=== PATIENT | male | born 1965 | race Caucasian/White ===

== ENCOUNTER 2017-01-02 00:59 | Emergency (ER) | payer OTHER ==
[~2017-01-02] VITALS: Ht 177.8 cm; Wt 87.5 kg
[2017-01-02 01:02] VITALS: Ht 177.8 cm; Wt 87.5 kg
--- NOTE | 2017-01-02 01:46 | ERD ---
ER Documentation Chief Complaint Date/Time DATE: 01/02/17 TIME: 01:44 Chief Complaint sp fall while working in his job from boxes, right upper back pain, right elbow pain HPI 51-year-old male presents to emergency department for complaints of right elbow pain headache dizziness right upper back pain after falling while working today. Patient fell landed backwards and landed on the right elbow and the head. Patient did not lose consciousness after the injury. Patient does not have any numbness or tingling. Patient does not have any vomiting. Patient denies any blurry vision. Patient denies any joint deformity. Patient did not take any medications for pain. Patient discussed the pain as throbbing pain, 6/ 10 scale, is worse upon movement of the joints. Patient denies any open wounds. ROS All systems reviewed and are negative except as per history of present illness. Medications Home Meds Reported Medications [none] Unknown Strength No Conflict Check 01/02/17 Allergies Allergies: Coded Allergies: No Known Allergy (Unverified , 01/02/17) PMhx/Soc Medical and Surgical Hx: pt denies Medical Hx, pt denies Surgical Hx Hx Alcohol Use: No Hx Substance Use: No Hx Tobacco Use: No Smoking Status: Never smoker FmHx Family History: No coronary disease, No diabetes, No other Physical Exam Vitals Vital Signs Date Time Temp Pulse Resp B/P Pulse Ox O2 Delivery O2 Flow Rate FiO2 01/02/17 01:02 97.7 63 20 141/89 100 Physical Exam GENERAL: The patient is well developed and appropriate for usual state of health, in no apparent distress. CHEST: Clear to auscultation bilaterally. There are no rales, wheezes or rhonchi. HEART: Regular rate and rhythm. No murmurs, clicks, rubs or gallops. No S3 or S4. ABDOMEN: Soft, nontender and nondistended. Good bowel sounds. No rebound or guarding. No gross peritonitis. No gross organomegaly or masses. No Ramsay sign or McBurney point tenderness. BACK: No midline or flank tenderness. Mild tenderness on palpation on the right paraspinal thoracic spine. EXTREMITIES: Bilateral full range of motion of the right elbow without any estrogen, mild tenderness on palpation of the right elbow area, no swelling noted, no deformity. Equal pulses bilaterally. There is no peripheral clubbing, cyanosis or edema. No focal swelling or erythema. Full range of motion. Grossly neurovascularly intact. NEURO: Alert and oriented. Cranial nerves 2-12 intact. Motor strength in all 4 extremities with 5/5 strength. Sensation grossly intact. Normal speech and gait. Negative Romberg sign. Negative pronator drift. SKIN: There is no apparent rash or petechia. The skin is warm and dry. HEMATOLOGIC AND LYMPHATIC: There is no evidence of excessive bruising or lymphedema. No gross cervical, axillary, or inguinal lymphadenopathy. Results 24 hrs PROCEDURE: Right elbow. CLINICAL INDICATION: Pain. TECHNIQUE: 3 views including AP, lateral and oblique views of the right elbow were obtained. COMPARISON: None. FINDINGS: There is no fracture, dislocation or bone destruction. The joint spaces are within normal limits. Bone mineralization is within normal limits. There is no radiopaque foreign body or abnormal calcification. IMPRESSION: No evidence of fracture. .Franklin Hart MD, MD Date Time Electronically viewed and signed by .Franklin Hart MD, on 01/02/2017 01:52 .T/ CC: YAS SWANSON NP PROCEDURE: Noncontrast CT Head. CLINICAL INDICATION: Trauma TECHNIQUE: Noncontrast CT of the head was obtained. The administered radiation dose was CTDI vol = 45 mGy, DLP = 720 mGy-cm. COMPARISON: No pertinent prior examinations were submitted for comparison. FINDINGS: The ventricles and sulci are within normal limits. An arachnoid cyst is noted in the left posterior fossa. There is no acute intracranial hemorrhage or extra -axial fluid collection. There is no mass effect. No midline shift is identified. There is no loss of de la cruz-white differentiation to suggest acute infarction. The orbits are within normal limits. Some mild mucosal thickening is noted in the left maxillary sinus. No destructive osseous lesion is identified. IMPRESSION: No acute findings. RPTAT: HIKT .Oneil Browne MD, MD Date Time Electronically viewed and signed by .Oneil Browne MD, MD on 01/02/2017 02:08 .T/ CC: YAS SWANSON [employer] PROCEDURE: CT Thoracic Spine without contrast. CLINICAL INDICATION: Trauma TECHNIQUE: Noncontrast CT of the thoracic spine was performed with axial images. Coronal and sagittal images were also performed. The administered radiation dose was CTDI vol = 23 mGy, DLP = 1040 mGy-cm. COMPARISON: There are no similar studies submitted for comparison. FINDINGS: Vertebral body stature and alignment are maintained. No acute fracture or subluxation is identified. The paravertebral and paraspinous soft tissues are unremarkable. IMPRESSION: No acute fracture or subluxation. RPTAT: HIKT .Oneil Browne MD, MD Date Time Electronically viewed and signed by .Oneil Browne MD, MD on 01/02/2017 02:15 .T/ CC: YAS SWANSON [employer] Procedures/MDM Medical Decision Making: Patient's pain is most likely consistent with a back contusion and head contusion and elbow contusion. There is no suspicion for neurovascular compromise. Patient has intact sensation and circulation of the affected extremity. There is low suspicion for septic arthritis. Patient does not have any fever. Radiology exams of the affected area does not show any fracture or dislocation. There is low suspicion for neurological emergencies at this time since patients neurologic exam is normal. Patient did not have any altered level consciousness, vomiting, changes in balance or memory after incident. Patients CT scan of the head does not show any neurological emergencies at this time. Disposition: Home. Patient is given prescription for on and off for mild to moderate pain, [place] for severe pain and Flexeril for muscle spasms. Patient was advised to elevate the affected area and apply ice on affected area. Patient was advised that if symptoms are worse, numbness, tingling, high fever, unable to move joint, worsening symptoms, to return to emergency department immediately. Otherwise, patient is advised to follow up with the primary care doctor in 5-7 days for reevaluation of symptoms. Departure Diagnosis: Primary Impression: Back contusion Encounter type: initial encounter Laterality: right Qualified Code: S20.221A - Back contusion, right, initial encounter Additional Impressions: Head contusion Encounter type: initial encounter Contusion of head detail: scalp Qualified Code: S00.03XA - Contusion of scalp, initial encounter Elbow contusion Encounter type: initial encounter Laterality: right Qualified Code: S50.01XA - Contusion of right elbow, initial encounter Condition: Stable Patient Instructions: Contusion, Back, Contusion, Elbow, Scalp Contusion, No Wake Up Additional Instructions: Patient is given prescription for on and off for mild to moderate pain, [place] for severe pain and Flexeril for muscle spasms. Patient was advised to elevate the affected area and apply ice on affected area. Patient was advised that if symptoms are worse, numbness, tingling, high fever, unable to move joint, worsening symptoms, to return to emergency department immediately. Otherwise, patient is advised to follow up with the primary care doctor in 5-7 days for reevaluation of symptoms. YAS SWANSON NP Jan 02, 2017 01:46
--- NOTE | 2017-01-02 01:52 | RADRPT ---
PROCEDURE: Right elbow. CLINICAL INDICATION: Pain. TECHNIQUE: 3 views including AP, lateral and oblique views of the right elbow were obtained. COMPARISON: None. FINDINGS: There is no fracture, dislocation or bone destruction. The joint spaces are within normal limits. Bone mineralization is within normal limits. There is no radiopaque foreign body or abnormal calcif ication. IMPRESSION: No evidence of fracture. .Franklin Hart MD, MD Date Time Electronically viewed and signed by .Franklin Hart MD, on 01/02/2017 01:52 .T/
--- NOTE | 2017-01-02 02:08 | RADRPT ---
PROCEDURE: Noncontrast CT Head. CLINICAL INDICATION: Trauma TECHNIQUE: Noncontrast CT of the head was obtained. The administered radiation dose was CTDI vol = 45 mGy, DLP = 720 mGy-cm. COMPARISON: No pertinent prior examinations were submitted for comparison. FINDINGS: The ventricles and sulci are within normal limits. An arachnoid cyst is noted in the left posterior fossa. There is no acute intracranial hemorrhage or extra-axial fluid collection. There is no mass effect. No midline shift is identified. There is no loss of de la cruz-white differentiation to suggest ac gisell infarction. The orbits are within normal limits. Some mild mucosal thickening is noted in the left maxillary sin us. No destructive osseous lesion is identified. IMPRESSION: No acute findings. RPTAT: HIKT .Oneil Browne MD, MD Date Time Electronically viewed and signed by .Oneil Browne MD, MD on 01/02/2017 02:08 .T/
--- NOTE | 2017-01-02 02:16 | RADRPT ---
PROCEDURE: CT Thoracic Spine without contrast. CLINICAL INDICATION: Trauma TECHNIQUE: Noncontrast CT of the thoracic spine was performed with axial images. Coronal and sagitta l images were also performed. The administered radiation dose was CTDI vol = 23 mGy, DLP = 1040 mG y-cm. COMPARISON: There are no similar studies submitted for comparison. FINDINGS: Vertebral body stature and alignment are maintained. No acute fracture or subluxation is identified. The paravertebral and paraspinous soft tissues are unremarkable. IMPRESSION: No acute fracture or subluxation. RPTAT: HIKT .Oneil Browne MD, MD Date Time Electronically viewed and signed by .Oneil Browne MD, on 01/02/2017 02:15 .T/
[2017-01-02] MEDS ORDERED: HYDR-906 PO (02:25)
[2017-01-02] MEDS ORDERED: CYCL-319 PO (02:25)
[2017-01-02] MEDS ORDERED: ACET500C5 PO (02:25)
== END 2017-01-02 02:39 | disposition home or self-care (01) ==
LOC: FTE 00:59
DX: S20.221A Contusion of right back wall of thorax, initial encounter (principal); S00.03XA Contusion of scalp, initial encounter; S50.01XA Contusion of right elbow, initial encounter; W18.39XA Other fall on same level, initial encounter; Y92.89 Other specified places as the place of occurrence of the external cause
CPT/HCPCS: 70450; 72128

== ENCOUNTER 2017-10-18 23:21 | Emergency (ER) | END 2017-10-19 02:42 | disposition home or self-care (01) ==

== ENCOUNTER 2018-05-25 12:54 | Emergency (ER) | END 2018-05-25 16:06 | disposition home or self-care (01) ==